=== PATIENT | male | born 1985 | race Caucasian/White ===

== ENCOUNTER 2018-07-11 08:16 | Emergency (ER) | payer MEDICAID ==
[~2018-07-11] VITALS: Ht 180.3 cm; Wt 98.0 kg
[2018-07-11 08:18] VITALS: BP 121/76; Ht 180.3 cm; Wt 98.0 kg
== END 2018-07-11 09:46 | disposition home or self-care (01) ==
LOC: ED 08:16
DX: S93.505A Unspecified sprain of left lesser toe(s), initial encounter (principal); W22.03XA Walked into furniture, initial encounter; Y93.89 Activity, other specified; Y92.89 Other specified places as the place of occurrence of the external cause; Y99.8 Other external cause status
CPT/HCPCS: Q0092